=== PATIENT | female | born 1950 | race Caucasian/White ===

== ENCOUNTER 2020-03-08 15:04 | Emergency (ER) | payer MEDICARE, SELFPAY ==
--- NOTE | 2020-03-08 15:11 | PC.NURSE ---
during registration pt informed staff she has an order for an ekg and was instructed to obtain it here. staff informed pt we could not do an outpatient ekg. pt left at this time. observed pt ambulatory without difficulty, no apparent distress, voicing no c/o.
== END 2020-03-08 15:11 | disposition left against medical advice (07) ==
PROVIDERS: Emergency Provider Nurse Practitioner Family; PCP Internal Medicine Infectious Disease
DX: Z53.21 Procedure and treatment not carried out due to patient leaving prior to being seen by health care provider (principal)
CPT/HCPCS: 99199